=== PATIENT | female | born 1985 | race Caucasian/White ===

== ENCOUNTER 2017-01-28 12:44 | Outpatient (CLI) | payer MEDICAID ==
--- NOTE | 2017-01-28 17:34 | Ultrasound Report ---
OB ULTRASOUND: 01/28/2017 CLINICAL INDICATION: anatomy. TECHNIQUE: Real-time scanning was performed with food service sales representatives static images obtained. LAST MENSTRUAL PERIOD unsure Clinical Age -- US Age 20 weeks 5 days EFW Hadlock 379 EFW% Hadlock -- Heart Rate 152 bpm EDC -- US EDC 06/12/2017 BPD Hadlock 20 weeks 4 days; Mean mm 48 HC Hadlock 20 weeks 1 day; Mean mm 176 AC Hadlock 20 weeks 6 days; Mean mm 157 FL Hadlock 21 weeks 0 days; Mean mm 35 Presentation moving Placental Location posterior Cervical Length 5.3 cm Amniotic Fluid 19.6 cm FINDINGS: There is a single viable intrauterine gestation, in variable position. heart rate is 152 BPM. The placenta is posterior, without evidence of previa. Amniotic fluid volume is subjectively normal. By size, the fetus measures 20 weeks 5 days. The following anatomic structures were visualized and appear normal: The intracranial contents, including the ventricles and posterior fossa; the lips and orbits; the spine; the heart, including 4-chamber view and outflow tracts, and diaphragm; the abdominal contents, including the stomach, the bilateral kidneys, and urinary bladder, as well as a normal 3- vessel cord insertion; 4 limbs. No free fluid or adnexal lesion is appreciated. IMPRESSION: SINGLE VIABLE INTRAUTERINE GESTATION, MEASURING 20 WEEKS 5 DAYS BY SIZE. NORMAL ANATOMIC SURVEY. [facility]
== END 2017-01-28 12:45 | disposition home or self-care (01) ==
LOC: DI 12:44
PROVIDERS: ATTEND Obstetrics & Gynecology
DX: Z36.3 Encounter for antenatal screening for malformations (principal)
CPT/HCPCS: 76811

== ENCOUNTER 2017-02-13 19:01 | Outpatient (CLI) | payer MEDICAID ==
[2017-02-13 20:29] LABS: BILIRUBIN,URINE NEGATIVE (NEGATIVE); PH,URINE 6.5 PH (5.0-7.5)
[2017-02-13 20:43] LABS: TRICHOMONAS,URINE PRESENT (None Seen); UR CULTURE IF IND INDICATED
[2017-02-13 20:45] VITALS: BP 101/57
== END 2017-02-13 21:12 | disposition home or self-care (01) ==
LOC: WFO 19:01 → FBP 19:07 → WFO 21:12
PROVIDERS: ATTEND Obstetrics & Gynecology
DX: O99.89 Other specified diseases and conditions complicating pregnancy, childbirth and the puerperium (principal); R10.11 Right upper quadrant pain; Z3A.23 23 weeks gestation of pregnancy
CPT/HCPCS: 80306; 81001; 87086; 99212

== ENCOUNTER 2017-02-24 08:35 | Emergency (ER) | payer MEDICAID ==
--- NOTE | 2017-02-24 09:05 | ED Physician Documentation ---
PD HPI URI - Stated complaint Stated Complaint: BODY ACHES/FEVER 22WKS PREG - Chief complaint Chief Complaint: General - History obtained from History obtained from: Patient, EMS - History of Present Illness Timing - onset: How many days ago (1-2) Timing duration: Days Timing details: Abrupt onset, Still present Associated symptoms: Fever, Chills, Nasal congestion, Sore throat, Dry cough Contributing factors: No: Sick contact, Travel, Immunocompromised Similar symptoms before: Has not had sx before Recently seen: Not recently seen Review of Systems Constitutional: denies: Fever, Chills Ears: reports: Ear pain Nose: reports: Rhinorrhea / runny nose, Congestion Throat: reports: Sore throat Respiratory: reports: Cough PD PAST MEDICAL HISTORY - Past Medical History Cardiovascular: None Respiratory: None Endocrine/Autoimmune: None GI: None FIELD MACHINIST: None : None Psych: Depression Musculoskeletal: None Derm: None - Past Surgical History Past Surgical History: No - Present Medications Home Medications: Ambulatory Orders Medication Instructions Recorded Confirmed Vit37/Iron/Folic Acid 1 tab PO DAILY 05/07/14 02/24/17 [Prenata Chewable Tablet] Benzonatate [Tessalon] 100 mg PO TID PRN #20 capsule 02/24/17 Bupropion HCl [Wellbutrin Sr] 350 mg PO DAILY 02/24/17 02/24/17 Dexamethasone [Decadron] 4 mg PO DAILY #5 tablet 02/24/17 guaiFENesin/CODEINE [Robitussin AC] 10 ml PO Q6H PRN #240 ml 02/24/17 - Allergies Allergies/Adverse Reactions: Allergies Allergy/AdvReac Type Severity Reaction Status Date / Time No Known Drug Allergies Allergy Verified 08/15/13 19:39 - Social History Does the pt smoke?: Yes Smoking Status: Current every day smoker Does the pt drink ETOH?: No Does the pt have substance abuse?: No - Immunizations Immunizations are current?: Yes - POLST Patient has POLST: No PD ED PE NORMAL - Vitals Vital signs reviewed: Yes - General General: Alert and oriented X 3, Well developed/nourished - HEENT HEENT: Ears normal, Pharynx benign - Neck Neck: Supple, no meningeal sign, No adenopathy - Cardiac Cardiac: RRR, No murmur - Respiratory Respiratory: Clear bilaterally - Abdomen Abdomen: Normal bowel sounds, Soft, Non tender, Other (gravid with fundus at umbilicus. Bedside U/S shows good movement and hear beat. ) - Back Back: No CVA TTP - Derm Derm: Normal color, Warm and dry - Extremities Extremities: No deformity, No tenderness to palpate, No edema, No calf tenderness / cord - Neuro Neuro: Alert and oriented X 3, No motor deficit, Normal speech Results - Vitals Vitals: Oxygen O2 Source Room air - Labs Labs: Microbiology 02/24/17 09:25 Group A Strep Throat Culture - Final Throat MIXED OROPHARYNGEAL TOMY PRESENT. NO BETA STREP PRESENT IN CULTURE. Laboratory Tests 02/24/17 02/24/17 09:25 09:25 Influenza A (Rapid) Negative Influenza B (Rapid) Negative Influenza Types A,B Ag - Group A Strep Rapid Negative PD MEDICAL DECISION MAKING - ED course Complexity details: reviewed results (flu and strep tests are negative and it sounds like URI. can treat with cold meds. ), considered differential, d/w patient Departure - Departure Disposition: 01 Home, Self Care Clinical Impression: Upper respiratory infection Qualifiers: URI type: unspecified URI Qualified Code(s): J06.9 - Acute upper respiratory infection, unspecified Condition: Stable Record reviewed to determine appropriate education?: Yes Instructions: ED RSV Bronchiolitis Prescriptions: Benzonatate [Tessalon] 100 mg PO TID PRN #20 capsule PRN Reason: Cough Dexamethasone [Decadron] 4 mg PO DAILY #5 tablet guaiFENesin/CODEINE [Robitussin AC] 10 ml PO Q6H PRN #240 ml PRN Reason: Cough Comments: Your flu and strep tests are negative. There will be throat culture which will result in about 3 days. For now we will presume some other viral cause. Drink lots of fluids. Tylenol or ibuprofen if needed for fevers and aches at this point. Tylenol is good throughout . No ibuprofen past 28-30 weeks ( what ever your LOCATE TECHNICIAN says). For now would use the Decadron for inflammation of the throat and airways to decrease symptoms. Use cough medicine and Tessalon as needed for cough. Recheck if not improving over the next several days. Follow-up with your OB. Discharge Date/Time: 02/24/17 10:39
[2017-02-24] MEDS ORDERED: DEXAMETHASONE 10 MG/ML VIAL PO STA (09:33)
[2017-02-24] MEDS ORDERED: guaiFENesin/CODEINE 5 ML UDC PO STA (09:33)
[2017-02-24] MEDS ORDERED: BENZONATATE 100 MG CAPSULE PO STA (09:34)
[2017-02-24 10:38] VITALS: BP 111/66
== END 2017-02-24 10:39 | disposition home or self-care (01) ==
LOC: ED 08:35
DX: O26.892 Other specified pregnancy related conditions, second trimester (principal); J06.9 Acute upper respiratory infection, unspecified; O99.332 Smoking (tobacco) complicating pregnancy, second trimester; Z3A.22 22 weeks gestation of pregnancy
CPT/HCPCS: 87070; 87275; 87276; 87430; 99283; A9270

== ENCOUNTER 2017-03-02 09:59 | Outpatient (CLI) | payer MEDICAID ==
[2017-03-02 13:27] LABS: HGB - HEMOGLOBIN 11.5 g/dL (12.0-16.0); MEAN CORPUSCULAR HEMOGLOBIN 32.2 pg (27.0-31.0); MEAN CORPUSCULAR HGB CONC 34.7 g/dL (32.0-36.0); MEAN CORPUSCULAR VOLUME 92.9 fL (81.0-99.0); RED BLOOD COUNT 3.58 10^6/uL (4.20-5.40); RED CELL DISTRIBUTION WIDTH 13.1 % (12.0-15.0); WHITE BLOOD COUNT 10.6 x10^3/uL (4.8-10.8)
== END 2017-03-02 10:00 | disposition home or self-care (01) ==
LOC: LAB.N 09:59
PROVIDERS: ATTEND Obstetrics & Gynecology
DX: Z36.9 Encounter for antenatal screening, unspecified (principal)
CPT/HCPCS: 36415; 82950; 86850

== ENCOUNTER 2017-03-29 10:54 | Outpatient (CLI) | payer MEDICAID ==
[2017-03-29 16:55] LABS: MUDS CUTOFF CONCENTRATIONS CUTOFF CONC BELOW:
[2017-03-29 17:22] LABS: AMPHETAMINE SCREEN,URINE NEGATIVE (NEGATIVE); BENZODIAZEPINES SCREEN, URINE NEGATIVE (NEGATIVE); COCAINE SCREEN URINE NEGATIVE (NEGATIVE); METHADONE SCREEN, URINE NEGATIVE (NEGATIVE); METHAMPHETAMINES SCREEN, URINE NEGATIVE (NEGATIVE); OPIATE SCREEN, URINE NEGATIVE (NEGATIVE); OXYCODONE SCREEN, URINE NEGATIVE (NEGATIVE); PROPOXYPHENE SCREEN, URINE NEGATIVE (NEGATIVE); TRICYCLIC ANTIDEPRESSANT,URINE NEGATIVE (NEGATIVE)
== END 2017-03-29 10:55 ==
LOC: LAB.R 10:54
PROVIDERS: ATTEND Obstetrics & Gynecology
DX: Z36.9 Encounter for antenatal screening, unspecified (principal); A56.00 Chlamydial infection of lower genitourinary tract, unspecified
CPT/HCPCS: 80306; 87491; 87591

== ENCOUNTER 2017-04-05 09:03 | Outpatient (CLI) | payer MEDICAID ==
--- NOTE | 2017-04-05 13:24 | Ultrasound Report ---
OB FOLLOWUP: 04/05/2017 CLINICAL INDICATION: Size/date discrepancy. TECHNIQUE: Real-time scanning was performed with pharmacy sales representative static images obtained. LAST MENSTRUAL PERIOD 09/05/2016 Clinical Age 30 weeks 2 days US Age 31 weeks 5 days EFW Hadlock 1773 g EFW% Hadlock 66% Heart Rate 139 bpm EDC 06/12/2017 US EDC 06/02/2017 BPD Hadlock 32 weeks 0 days; Mean mm 79.7 HC Hadlock 32 weeks 0 days; mean mm 290.7 AC Hadlock 30 weeks 5 days; Mean mm 266.1 FL Hadlock 32 weeks 3 days; Mean mm 62.5 Presentation transverse Placental Location posterior Cervical Length --- Amniotic Fluid 8.0 cm FINDINGS: There is a single viable intrauterine gestation, in transverse lie. heart rate is 139 BPM. The placenta is posterior without evidence of previa. Amniotic fluid volume is normal, with an BRET of 20.9. By size, the fetus measures 31 weeks 5 days (30 weeks 2 days by previous sonogram 01/28/2017) . No free fluid or adnexal lesion is appreciated. IMPRESSION: SINGLE VIABLE INTRAUTERINE GESTATION, WITH SIZE IN KEEPING WITH DATING FROM PREVIOUS SONOGRAM. TD: 04/05/2017 13:03 ZANDRA
== END 2017-04-05 09:04 | disposition home or self-care (01) ==
LOC: DI 09:03
PROVIDERS: ATTEND Obstetrics & Gynecology
DX: O26.843 Uterine size-date discrepancy, third trimester (principal)
CPT/HCPCS: 76816

== ENCOUNTER 2017-04-07 10:57 | Outpatient (CLI) | payer MEDICAID ==
[2017-04-07 11:32] VITALS: BP 95/53
--- NOTE | 2017-04-08 08:58 | Ultrasound Report ---
OB FOLLOWUP: 04/07/2017 CLINICAL INDICATION: Abdominal pain. TECHNIQUE: Real-time scanning was performed with insurance verification representative static images obtained. LAST MENSTRUAL PERIOD 09/05/2016 CLINICAL AGE 30 weeks 4 days US AGE 30 weeks 6 days EFW HADLOCK 1673 grams EFW% HADLOCK --% HEART RATE 135 bpm EDC 06/12/2017 US EDC 06/10/2017 BPD HADLOCK 31 weeks 4 days; Mean mm 78 HC HADLOCK 31 weeks 3 days; Mean mm 285 AC HADLOCK 30 weeks 2 days; Mean mm 262 FL HADLOCK 31 weeks 4 days; Mean mm 60 PRESENTATION variable PLACENTAL LOCATION posterior CERVICAL LENGTH -- AMNIOTIC FLUID 25.3 cm MVP 7.8 cm FINDINGS: There is a single viable intrauterine gestation, in variable position. heart rate is 135 BPM. The placenta is posterior, without evidence of previa or abruption. Amniotic fluid volume is at the upper limits of normal, with an BRET of 25.3 (25.8 cm is the 97.5th percentile for this gestational age). By size, the fetus measures 30 weeks 6 days (30 weeks 4 days by initial sonogram). Estimated weight by Hadlock method is 1673 grams. No free fluid or adnexal lesion is appreciated. IMPRESSION: SINGLE VIABLE INTRAUTERINE GESTATION, WITH EXPECTED GROWTH FROM INITIAL SONOGRAM. POSTERIOR PLACENTA, WITHOUT EVIDENCE OF PREVIA OR ABRUPTION. ESTIMATED WEIGHT OF 1673 GRAMS. BORDERLINE POLYHYDRAMNIOS. TD: 04/07/2017 17:13 MTDD
== END 2017-04-07 12:45 | disposition home or self-care (01) ==
LOC: WFO 10:57 → FBP 10:59 → WFO 12:45
PROVIDERS: ATTEND Obstetrics & Gynecology
DX: O99.89 Other specified diseases and conditions complicating pregnancy, childbirth and the puerperium (principal); R10.9 Unspecified abdominal pain; Z3A.30 30 weeks gestation of pregnancy
CPT/HCPCS: 59025; 76816; 83735

== ENCOUNTER 2017-04-19 07:58 | Outpatient (CLI) | payer MEDICAID ==
[2017-04-19 08:16] VITALS: BP 108/75
[2017-04-19 08:37] LABS: BILIRUBIN,URINE NEGATIVE (NEGATIVE); GLUCOSE, URINE (UA) NEGATIVE (NEGATIVE); KETONES,URINE (UA) NEGATIVE (NEGATIVE); LEUKOCYTE ESTERASE, URINE MODERATE (NEGATIVE); NITRITE,URINE NEGATIVE (NEGATIVE); OCCULT BLOOD,URINE NEGATIVE (NEGATIVE); PH,URINE 6.5 PH (5.0-7.5); PROTEIN,URINE NEGATIVE (NEGATIVE); UROBILINOGEN,URINE 0.2 (NORMAL) E.U./dL (NORMAL)
[2017-04-19 08:42] LABS: CLARITY,URINE SL. CLOUDY (CLEAR)
[2017-04-19 08:50] LABS: BACTERIA,URINE Many /HPF (None Seen); RBC,URINE 0-5 /HPF (0-5); SQUAMOUS EPITHELIAL CELL,UR MANY Squamous (<= Few)
[2017-04-19 09:19] LABS: BILIRUBIN,URINE NEGATIVE (NEGATIVE); GLUCOSE, URINE (UA) NEGATIVE (NEGATIVE); KETONES,URINE (UA) NEGATIVE (NEGATIVE); LEUKOCYTE ESTERASE, URINE NEGATIVE (NEGATIVE); NITRITE,URINE NEGATIVE (NEGATIVE); OCCULT BLOOD,URINE NEGATIVE (NEGATIVE); PROTEIN,URINE NEGATIVE (NEGATIVE); UROBILINOGEN,URINE 0.2 (NORMAL) E.U./dL (NORMAL)
[2017-04-19 09:20] LABS: CLARITY,URINE CLEAR (CLEAR)
== END 2017-04-19 09:13 | disposition home or self-care (01) ==
LOC: WFO 07:58 → FBP 08:00 → WFO 09:13
PROVIDERS: ATTEND Obstetrics & Gynecology
DX: O99.89 Other specified diseases and conditions complicating pregnancy, childbirth and the puerperium (principal); S39.011A Strain of muscle, fascia and tendon of abdomen, initial encounter; X50.0XXA Overexertion from strenuous movement or load, initial encounter; Z3A.32 32 weeks gestation of pregnancy
CPT/HCPCS: 81001; 81003; 87086; 99213

== ENCOUNTER 2017-05-12 13:37 | Outpatient (CLI) | payer MEDICAID | END 2017-05-12 13:38 | LOC: LAB.R 13:37 | PROVIDERS: ATTEND Obstetrics & Gynecology | DX: Z36.85 Encounter for antenatal screening for Streptococcus B (principal) | CPT/HCPCS: 87081 ==

== ENCOUNTER 2017-05-17 09:01 | Outpatient (CLI) | payer MEDICAID ==
--- NOTE | 2017-05-17 14:55 | Ultrasound Report ---
OB ULTRASOUND: 05/17/2017 CLINICAL INDICATION: Size greater than dates. TECHNIQUE: Real-time scanning was performed with software sales representative static images obtained. LAST MENSTRUAL PERIOD 09/06/2016 Clinical Age 36 weeks 1 day US Age 37 weeks 3 days EFW Hadlock 3122 grams EFW% Hadlock 68% Heart Rate 129 bpm EDC 06/13/2017 US EDC 06/04/2017 BPD Hadlock 37 weeks 5 days; Mean mm 92 HC Hadlock 37 weeks 6 days; Mean mm 332 AC Hadlock 36 weeks 6 days; Mean mm 329 FL Hadlock 37 weeks 0 days; Mean mm 72 Presentation cephalic Placental Location posterior Cervical Length -- Amniotic Fluid 22.0 cm; MVP 8 cm FINDINGS: There is a single viable intrauterine gestation, in cephalic presentation. heart rate is 129 BPM. The placenta is posterior, without evidence of previa. Amniotic fluid volume is normal, with an BRET of 22.0. By size, the fetus measures 37 weeks 3 days (36 weeks 1 day per patient). Estimated weight by Hadlock method is 3122 grams. No free fluid or adnexal lesion is appreciated. IMPRESSION: SINGLE VIABLE INTRAUTERINE GESTATION, WITH SIZE IN KEEPING WITH GIVEN DATING. ESTIMATED WEIGHT OF 3122 GRAMS BY HADLOCK METHOD. TD: 05/17/2017 13:01 ZANDRA
== END 2017-05-17 09:02 | disposition home or self-care (01) ==
LOC: DI 09:01
PROVIDERS: ATTEND Obstetrics & Gynecology
DX: Z36.9 Encounter for antenatal screening, unspecified (principal)
CPT/HCPCS: 76816

== ENCOUNTER 2017-06-02 08:00 | Outpatient (CLI) | payer MEDICAID | END 2017-06-02 08:01 | disposition home or self-care (01) | LOC: LAB.R 08:00 | PROVIDERS: ATTEND Obstetrics & Gynecology | DX: R35.0 Frequency of micturition (principal) | CPT/HCPCS: 87086 ==

== ENCOUNTER 2017-06-10 07:32 | Inpatient (IN) | payer MEDICAID ==
--- NOTE | 2017-06-09 16:05 | PREOP HISTORY & PHYSICAL ---
ANTICIPATED DATE OF ADMISSION: 06/10/2017. IDENTIFICATION: Patient is a 32-year-old G4, P3-0-0-3 with a 39 and 4/7-week intrauterine . EDC is 06/13/2017, consistent with 8-week ultrasound. HISTORY OF PRESENT ILLNESS: Patient presents today for routine visit. Patient at this point in time is having a difficult time with the . She is having significant back pain secondary to the baby. Baby is moving well. She denies any vaginal bleeding or loss of fluid. Patient at this point in time states that she desires induction of labor. In general, she cannot do anything else and just is trying to deal with her back pain. This has essentially been remarkable for patient's xxwy-twac-d-day smoking habit. She has also been on Wellbutrin for smoking cessation. She also was treated for trichomonas during this in January. PAST MEDICAL HISTORY 1. depression. 2. History of drug abuse. PAST SURGICAL HISTORY: None. ALLERGIES: NO KNOWN DRUG ALLERGIES. MEDICATIONS 1. vitamins. 2. Status post Flagyl for trichomonas. SOCIAL HISTORY: She, again, smokes half a pack of tobacco a day. She denies any alcohol or illicit drug use, multiple MUDS screens during this have been unremarkable. She is not with the father of the baby. She has children Paresh, Beatriz, and Essence. This is a male fetus with anticipated name of Reji. Her kids see [facility] for pediatrics. She anticipates to bottle feed and desires cabergoline after delivery of baby Reji. Patient would like an epidural for pain control if possible. PAST OBSTETRICAL HISTORY: Three prior vaginal deliveries at 40 and 41 weeks, largest baby weighing 8 pounds 6 ounces. She has stated that should she require a delivery, she would like to have a sterilization. This consent has been signed on 03/01/2017. She has received her flu vaccine on 01/08/2017 and her Tdap on 03/29/2017. Her pharmacy of choice is [facility]. Her mother is Nadine. PAST GYNECOLOGIC HISTORY: Patient did had have an ASCUS Pap smear during this . FAMILY HISTORY: No female carcinoma. REVIEW OF SYSTEMS: Negative unless otherwise stated. PHYSICAL EXAMINATION VITAL SIGNS: Height is 62 inches, weight is 207 pounds, blood pressure 102/60. GENERAL: Patient is a well-developed, well-nourished, female who appears to be older than her stated age. HEENT: Within normal limits, but she does have poor dentition. CARDIOVASCULAR: Rate is regular. No murmurs or rubs. LUNGS: Lungs are clear to auscultation bilaterally. ABDOMEN: Gravid, nontender. Fundal height is 36 cm. CERVICAL: Most recent cervical examination today is 2, 50, and -2. Head is applied to the cervix. STUDIES: laboratories reveal an ASCUS Pap smear with negative high- risk human papillomavirus. GC was positive on 11/08/2016, and a 03/29/2017 test of cure was negative. Gonorrhea was negative. HIV nonreactive. Blood type is AB positive. Antibody screen is negative, RPR nonreactive, rubella immune, hepatitis B surface antigen is nonreactive. One-hour GTT is 121. White count 10.6, H and H is 11.5 and 33.2, platelets within normal limits. GBS negative. anatomical survey shows that is consistent with dates and within normal limits. Placenta is posterior. ASSESSMENT 1. A 32-year-old G4, P3-0-0-3, with a 39 and 4/7-week intrauterine . 2. Cervix remote from delivery. 3. Desires elective induction of labor. 4. Treated for chlamydia with test of cure being negative. PLAN 1. We will proceed to a scheduled cervical ripening on 06/10/2017 via Cytotec 50 mcg buccally. 2. Epidural for pain control. 3. Anticipate spontaneous vaginal delivery. 4. We will do post- tubal ligation should patient require delivery, which would be very unlikely during this delivery. TD: 06/09/2017 15:32 ZANDRA
[~2017-06-10 07:32] MED LIST: SODIUM CHLORIDE FLUSH 0.9% 10 ML SYRINGE IVP PRN; fentaNYL 100 MCG/2 ML VIAL IVP PRN
[2017-06-10] MEDS: SODIUM CHLORIDE FLUSH 0.9% 10 ML SYRINGE IVP SCH ×2 (08:32→11:28)
[2017-06-10] MEDS: LACTATED RINGERS 1,000 ML IV SCH ×3 (08:32→20:39)
[2017-06-10] MEDS: miSOPROStol 100 MCG TABLET SL SCH ×3 (08:32→13:03)
[2017-06-10 08:54] LABS: BASOPHILS % (AUTO) 0.2 %; EOSINOPHILS # (AUTO) 0.1 10^3/uL (0.0-0.7); EOSINOPHILS % (AUTO) 0.5 %; HGB - HEMOGLOBIN 11.9 g/dL (12.0-16.0); LYMPHOCYTES # (AUTO) 2.4 10^3/uL (1.5-3.5); MEAN CORPUSCULAR HGB CONC 33.9 g/dL (32.0-36.0); MEAN CORPUSCULAR VOLUME 91.4 fL (81.0-99.0); MEAN PLATELET VOLUME 9.1 fL (7.9-10.8); MONOCYTES # (AUTO) 0.5 10^3/uL (0.0-1.0); MONOCYTES % (AUTO) 3.8 %; NEUTROPHILS # (AUTO) 9.7 10^3/uL (1.5-6.6); NEUTROPHILS % (AUTO) 76.5 %; PLT - PLATELET COUNT 248 10^3/uL (130-450); RED BLOOD COUNT 3.84 10^6/uL (4.20-5.40); RED CELL DISTRIBUTION WIDTH 13.4 % (12.0-15.0); WHITE BLOOD COUNT 12.7 x10^3/uL (4.8-10.8)
--- NOTE | 2017-06-10 13:45 | PROVIDER PROGRESS NOTE ---
Labor Progress Note - Uterine Monitoring Uterine Monitoring Mode: positive: External toco Contraction Frequency (min/apart): Uterine irritability on toco Contraction Intensity: positive: Moderate to strong Uterine Resting Tone: positive: Soft - Monitoring Monitor Mode: positive: External ultrasound Heart Rate Baseline: 120's Heart Rate Variability: positive: Moderate (6-25 bmp) Accelerations: positive: Present, 15x15 Decelerations: positive: None Strip Review: positive: Category I - Vaginal Exam Dilation (in cm): (Deferred) - Labor Progress Note Labor Progress Note/Additional Text: 32 yo with a 39w4d IUP Elective induction of labor Cervix remote from delivery Reassuring maternal and status S/p 2nd dose of cytotec 50 mcg SL. Given 12:45 (first at 08:30). Plan to recheck cervix at about 17:00. Likely to give the patient an epidural and then AROM Expect Patient OK with plan Labs, EKG, Meds, Allergy - Lab Results Fish Bones: 06/10/17 08:00 Other Lab Results: Lab Results x24hrs 06/10/17 Range/Units 08:00 WBC 12.7 H (4.8-10.8) x10^3/uL RBC 3.84 L (4.20-5.40) 10^6/uL Hgb 11.9 L (12.0-16.0) g/dL Hct 35.1 L (37.0-47.0) % MCV 91.4 (81.0-99.0) fL MCH 31.0 (27.0-31.0) pg MCHC 33.9 (32.0-36.0) g/dL RDW 13.4 (12.0-15.0) % Plt Count 248 (130-450) 10^3/uL MPV 9.1 (7.9-10.8) fL Neut # 9.7 H (1.5-6.6) 10^3/uL Lymph # 2.4 (1.5-3.5) 10^3/uL Lamar # 0.5 (0.0-1.0) 10^3/uL Eos # 0.1 (0.0-0.7) 10^3/uL Baso # 0.0 (0.0-0.1) 10^3/uL Absolute Nucleated RBC 0.00 x10^3/uL Nucleated RBC % 0.0 /100WBC - Medications Medications: Ambulatory Orders Medication Instructions Recorded Confirmed Vit37/Iron/Folic Acid 1 tab PO DAILY 05/07/14 02/24/17 [Prenata Chewable Tablet] Benzonatate [Tessalon] 100 mg PO TID PRN #20 capsule 02/24/17 Bupropion HCl [Wellbutrin Sr] 350 mg PO DAILY 02/24/17 02/24/17 Dexamethasone [Decadron] 4 mg PO DAILY #5 tablet 02/24/17 guaiFENesin/CODEINE [Robitussin AC] 10 ml PO Q6H PRN #240 ml 02/24/17 - Allergy Allergy: Allergies Allergy/AdvReac Type Severity Reaction Status Date / Time No Known Drug Allergies Allergy Verified 08/15/13 19:39 Vit37/Iron/Folic Acid [Prenata Chewable Tablet] 1 tab PO DAILY Benzonatate [Tessalon] 100 mg PO TID PRN #20 capsule 02/24/17 Bupropion HCl [Wellbutrin Sr] 350 mg PO DAILY 02/24/17 Dexamethasone [Decadron] 4 mg PO DAILY #5 tablet 02/24/17 guaiFENesin/CODEINE [Robitussin AC] 10 ml PO Q6H PRN #240 ml 02/24/17
--- NOTE | 2017-06-10 17:45 | PROVIDER PROGRESS NOTE ---
Labor Progress Note - Uterine Monitoring Uterine Monitoring Mode: positive: External toco Contraction Frequency (min/apart): Difficult to see Contraction Intensity: positive: Moderate to strong Uterine Resting Tone: positive: Soft - Monitoring Monitor Mode: positive: External ultrasound Heart Rate Variability: positive: Moderate (6-25 bmp) Accelerations: positive: Present, 15x15 Decelerations: positive: None Strip Review: positive: Category I - Vaginal Exam Dilation (in cm): 5 Effacement (%): 60 Station: -2 Cervical Position: Posterior - Labor Progress Note Labor Progress Note/Additional Text: 32 yo with a 39w4d IUP AROM-- scant, clear fluid. Epidural now Expect Reassuring and maternal status
[2017-06-10] MEDS ORDERED: ROPIVACAINE 0.5% PF 20 ML AMPULE ONE (17:58)
[2017-06-10] MEDS ORDERED: fent/BUPIV 2 MCG/0.125% 250 ML EP ONE (18:02)
[2017-06-10] MEDS ORDERED: ePHEDrine 50 MG/ML VIAL IVP PRN (18:36)
[2017-06-10] MEDS ORDERED: METOCLOPRAMIDE 10 MG/2 ML VIAL IVP PRN (18:36)
[2017-06-10] MEDS ORDERED: fent/BUPIV 2 MCG/0.125% 250 ML EP PRN (18:36)
[2017-06-10] MEDS ORDERED: diphenhydrAMINE INJ 50 MG/ML VIAL IVP PRN (18:36)
[2017-06-10] MEDS ORDERED: NALOXONE 0.4 MG/ML VIAL IVP PRN (18:36)
[2017-06-10] MEDS ORDERED: NALBUPHINE 20 MG/ML AMP IVP PRN (18:36)
[2017-06-10] MEDS ORDERED: ONDANSETRON 4 MG/2 ML VIAL IVP PRN (18:36)
[2017-06-10] MEDS ORDERED: LACTATED RINGERS 500 ML IV ONE (18:36)
[2017-06-10] MEDS ORDERED: OXYTOCIN/SODIUM CHLORIDE 500 ML IV SCH (20:00)
[2017-06-11] MEDS: LACTATED RINGERS 1,000 ML IV SCH ×2 (04:17→11:23)
[2017-06-11] MEDS ORDERED: miSOPROStol 200 MCG TABLET ONE (10:17)
--- NOTE | 2017-06-11 10:23 | PROVIDER PROGRESS NOTE ---
Labor Progress Note - Uterine Monitoring Uterine Monitoring Mode: positive: External toco Contraction Frequency (min/apart): Q3-4 (Pitocin 12 mU/min) Contraction Intensity: positive: Moderate to strong Uterine Resting Tone: positive: Soft - Monitoring Monitor Mode: positive: External ultrasound Heart Rate Variability: positive: Moderate (6-25 bmp) Accelerations: positive: Present, 15x15 Decelerations: positive: None Strip Review: positive: Category I - Vaginal Exam Dilation (in cm): 4 (Last RN exam about 08:00) Station: -2 - Labor Progress Note Labor Progress Note/Additional Text: 32 yo with a 39w5d IUP Desired induction of labor Clinically membranes intact Given high station, will continue pitocin until cervix has descended, then will AROM Continue epidural Expect (>5 family members and friends in the room. Some of the visitors smell of cigarettes and cat urine. Will minimize the visitors in the room for delivery.)
[2017-06-11] MEDS ORDERED: ACETAMINOPHEN 325 MG TABLET PO PRN (11:38)
--- NOTE | 2017-06-11 12:34 | PROVIDER PROGRESS NOTE ---
Labor Progress Note - Uterine Monitoring Uterine Monitoring Mode: positive: External toco Contraction Frequency (min/apart): Q3 Contraction Intensity: positive: Moderate to strong - Monitoring Monitor Mode: positive: External ultrasound Heart Rate Variability: positive: Moderate (6-25 bmp) Accelerations: positive: Present, 10x10 (=/32 wks) Decelerations: positive: None Strip Review: positive: Category I - Vaginal Exam Dilation (in cm): 8 Effacement (%): 70 Station: -2 Cervical Position: Posterior - Labor Progress Note Labor Progress Note/Additional Text: 32 yo with a 39w5d IUP AROM with clear fluid and small clots Continue epidural Expect
[2017-06-11] MEDS ORDERED: WITCH HAZEL/GLYCERIN 1 EACH MED..PAD TOP PRN (13:56)
[2017-06-11] MEDS ORDERED: OXYTOCIN/SODIUM CHLORIDE 250 ML IV ONE (13:56)
[2017-06-11] MEDS ORDERED: MAGNESIUM HYDROXIDE 2,400 MG/30 ML UDC PO PRN (13:56)
--- NOTE | 2017-06-11 14:04 | DELIVERY NOTE ---
Delivery Note - Labor Labor: positive: Augmented by ARM, Augmented by oxytocin - Infant Delivery Method Delivery Method: positive: Spontaneous vaginal delivery - Presentation Presentation: positive: Vertex - Nuchal Cord Nuchal Cord: positive: None - Amniotic Fluid Description Amniotic Fluid Description: positive: Clear - Episiotomy Type Episiotomy Type: positive: None - Laceration Laceration: positive: 2nd degree, Labial, Perineal - Suture Suture Type: positive: Vicryl Suture Size: positive: 3-0 - Delivery Outcome Delivery Outcome: positive: Livebirth - : positive: Placed in direct skin contact with mother [place] sex: positive: Male : 9 : 9 - Cord Cord: positive: 3 vessels - Placenta Placenta: positive: Intact, Spontaneous - Estimated Blood Loss Estimated Blood Loss (in cc): 300 - Post Delivery Events Post Delivery Events: positive: No post delivery events - Delivery Comments (Free Text/Narrative) Delivery Comments (Free Text/Narrative): 32 yo with a 39w5d IUP was electively induced. She received 2 doses of cytotec 50 mcg buccally then pitocin. Epidural for pain control. AROM revealed clear fluid. The patient spontaneously delivered a viable male , VTX, OA. No nuchal cord nor shoulder dystocia. Bulb suction after delivery. The placenta delivered spontaneously, intact with a 3VC. 2nd degree midline, left labial and right labial lacerations repaired with 3-0 vicryl. EBL 300 mL. No complications. Will give routine pain meds including round the clock tylenol and Celebrex with PRN vicodin.
[2017-06-11] MEDS ORDERED: SODIUM CHLORIDE FLUSH 0.9% 10 ML SYRINGE ONE (16:14)
[2017-06-11] MEDS: HYDROcod/ACETAM 5/325 MG TABLET PO PRN ×2 (17:56→22:49)
[2017-06-11] MEDS: NICOTINE 21 MG PATCH TOP SCH (18:03)
[2017-06-11] MEDS: DOCUSATE SODIUM 100 MG CAPSULE PO SCH (20:46)
[2017-06-11] MEDS: CELECOXIB 100 MG CAPSULE PO SCH (20:46)
[2017-06-11] MEDS: ACETAMINOPHEN 325 MG TABLET PO SCH (20:46)
[2017-06-12] MEDS: NICOTINE 21 MG PATCH TOP SCH (10:40)
[2017-06-12] MEDS: CELECOXIB 100 MG CAPSULE PO SCH (11:07)
[2017-06-12] MEDS: HYDROcod/ACETAM 5/325 MG TABLET PO PRN (11:07)
[2017-06-12] MEDS: ACETAMINOPHEN 325 MG TABLET PO SCH ×2 (11:07→15:23)
[2017-06-12] MEDS: DOCUSATE SODIUM 100 MG CAPSULE PO SCH (11:08)
--- NOTE | 2017-06-12 11:14 | PROVIDER PROGRESS NOTE ---
Subjective - Prog Note Date Prog Note Date: 06/12/17 Prog Note Time: 11:10 - Subjective Pt reports feeling: Improved Subjective: Patient sitting in bed, 3 older children, foster child, niece and sister in the room visiting. Her pain is almost satisfactorily controlled but she is not taking her medications routinely. Decreasing lochia. No nausea, vomiting, fevers or chills. Urinating and tolerating a regular diet well. Ambulating without difficulty. D/W the patient that overall a laparoscopic bilateral tubal sterilization at 6 - 8 weeks is likely better than an immediate sterilization. Risks of hemorrhage and aspiration is less, not to mention maximal prevention of ovarian cancer with complete removal of both tubes , is better if surgery is deferred. Objective - Vital Signs/Intake & Output Vital Signs: Vital Signs x48h Temp Pulse Resp BP Pulse Ox 06/12/17 07:45 98.4 F 70 16 90/50 L 99 Intake & Output: Intake & Output 06/09/17 06/10/17 06/11/17 06/12/17 23:59 23:59 23:59 23:59 Intake Total 7999.906 0281.167 Output Total 1700 2090 Balance -474.999 680.167 - Objective General Appearance: positive: No acute distress Eyes Bilateral: positive: Normal inspection Abdomen: positive: Non-tender Skin: positive: Color nml Neurologic/Psychiatric: positive: Oriented x3, Sensation nml, Mood/affect nml - Lab Results Fish Bones: 06/10/17 08:00 Assessment/Plan - Problem List (1) Vaginal delivery Impression: 32 yo S/p 06/11/2017 Normal recovery Desires permanent sterilization Suboptimal pain control Will increase frequency of po pain meds Discharge to home, likely after lunch, after pain better controlled Rx tylenol, motrin faxed to her pharmacy. Handwritten Rx for vicodin done Patient to see me at [facility] in 3 and 8 weeks. Anticipate laparoscopic bilateral salpingectomy at about 8 weeks No heavy lifting or driving after taking vicodin Call for worsening fevers, chills, abdominal pain Do not breast feed and wear a tight bandage around her chest to suppress Discharge summary dictated: [id number] Discharge Plan Disposition: 01 Home, Self Care Condition: Good Diet: Regular Activity Restrictions: Additional Comments (No lifting > 10 lbs) Shower Restrictions: No (No baths) Driving Restrictions: Yes (Do not drive after taking vicodin) Weight Bearing: Full Weight No Smoking: If you smoke, Please STOP! Call for help.
--- NOTE | 2017-06-12 11:42 | DISCHARGE SUMMARY ---
Physician: Judy Bryant DO DATE OF ADMISSION: 06/10/2017 DATE OF DISCHARGE: 06/12/2017 DIAGNOSES ON ADMISSION 1. 32-year-old G4, P3-0-0-3 with a 39 and 3/7-week intrauterine . 2. Desired elective induction of labor. 3. Cervix remote from delivery. 4. Desires permanent sterilization. DIAGNOSES ON DISCHARGE 1. 32-year-old G4, P4-0-0-4, status post spontaneous vaginal delivery on 2017. 2. Normal recovery. 3. Desires permanent sterilization. BRIEF HISTORY: The patient is a patient of [facility] who presented to Labor and Delivery on 06/10/2017 for scheduled elective induction of labor. She received 2 doses of Cytotec 50 mcg buccally x2 as well as IV Pitocin. She did have an epidural for pain control. After artificial rupture of membranes revealed clear fluid, she spontaneously delivered a viable male named Reji. Apgars were 9 and 9 at 1 and 5 minutes respectively. Weight is approximately 8 pounds. She sustained a second-degree midline as well as second-degree bilateral labial lacerations. All lacerations were repaired with 3-0 Vicryl. EBL was 300 mL, and there were no complications. Her course has been unremarkable. Although her pain is controlled with oral medications, it can be improved with routine scheduling of her medications. Otherwise, she is ambulating and tolerating a regular diet. She is ambulating and urinating without difficulty. Her lochia is decreasing. I discussed with the patient though she does desire permanent sterilization that it is in her best interest to proceed with a laparoscopic bilateral salpingectomy at least 8 weeks after delivery. This is because there will be decreased risks of aspiration, hemorrhage, and inadvertent lacerations or cauterizations as compared to an immediate sterilization. In addition, because of the enlarged uterus, it would be very difficult for me to perform a bilateral salpingectomy in order to maximize ovarian cancer prevention. With a laparoscopic surgery, I can assuredly remove the fallopian tube in its entirety. After I explained this to her, she understood the conversation and would like to proceed. She will be discharged to home today after we optimize her pain control. Again , we will increase the frequency of her pain medications. She has had 2 prescriptions for Vicodin as well as Motrin sent to her pharmacy. Handwritten prescription for Vicodin is available to her should she desire it. No heavy lifting more than 10 pounds is recommended for her. I also cautioned her not to drive after taking Vicodin as she can get a DUI. She is to call me for routine visits at 3 and 8 weeks after delivery. I have taken the liberty of initiating surgical scheduling for a laparoscopic bilateral salpingectomy for desired sterilization. She is to call should she have worsening fevers, chills , abdominal pain or vaginal bleeding. TD: 06/12/2017 11:42 MTDD
[2017-06-12 15:19] VITALS: BP 108/59
--- NOTE | 2017-06-12 15:30 | Labor Flowsheet ---
Labor Flowsheet Datetime Report Generated by CPN: 06/12/2017 15:30 Datetime: 06/12/2017 14:09 VITAL SIGNS NBP Sys/Marleen/Mean (mmHg): 108 : 59 : 71 Pulse: 80 Datetime: 06/11/2017 16:44 SpO2 (%): 100 Datetime: 06/11/2017 14:00 PAIN Pain Presence: None/Denies Datetime: 06/11/2017 13:24 Stage of : Membranes Ruptured Date/Time: 06/11/2017 12:15 Datetime: 06/11/2017 13:15 LaborFlag: Labor Datetime: 06/11/2017 13:11 STAGE 2 Pushing: Urge to Push Pushing Progress: Descent with Pushing Preparation for Delivery: Setup for Delivery Datetime: 06/11/2017 13:04 Communication Comments: Dr. Annette @ bedside Datetime: 06/11/2017 13:00 UTERINE ACTIVITY Monitor Mode: External Monitor Interventions for UA: [place] Adjusted Frequency (min): 3 Quality: Strong Duration (sec): 80 Pattern: Normal: <= 5 Contractions in 10 Minutes Resting Tone (Palpate): Relaxed ASSESSMENT A Monitor Mode: External US Monitor Interventions for FHR: Ultrasound Adjusted FHR Baseline Rate : 115 Variability: Moderate 6-25 bpm Accelerations: None Decelerations: Early Actions for Decelerations: Side to Side; Provider Notified Category: Category II PATIENT CARE Oxygen Method: Room Air Pushing Position: Pushing with Contractions Datetime: 06/11/2017 12:30 Pain Type: Contraction Pain Location: Abdomen Pain Relief Measures: Comfort Measures Pain Coping: Breathing Through Contractions Amniotic Fluid Color: Clear MATERNAL ASSESSMENT Level of Consciousness: Lethargy Headache: Denies Comfort Measures: Breathing/Relaxation Datetime: 06/11/2017 12:16 Membrane Status: Ruptured Membranes Rupture Method: Artificial Amniotic Fluid Amount: Small Amniotic Fluid Odor: Normal Datetime: 06/11/2017 11:30 Strip Reviewed by: Dr. Bryant Provider Notified (Name): Dr. Bryant Notification Reason: Status Update; Status; Labor Status; Pain Datetime: 06/11/2017 11:29 COMMUNICATION Communication: RN at Bedside Datetime: 06/11/2017 11:12 Patient Position/Activity: Left Tilt; High Fowlers Datetime: 06/11/2017 11:07 VAGINAL EXAM Dilatation (cm): 6.0 Effacement (%): 90 Station: -3 Exam by: ALDAIR Villatoro Vaginal Bleeding: Small Cervix, Consistency: Soft Lie 'A': Longitudinal Vaginal Exam Comments: BBOW Datetime: 06/11/2017 11:00 MEDICATIONS Pitocin (milliunits): Increased to @ 14 Patient Care Comments: Pt sitting in bed with R tilt Datetime: 06/11/2017 10:00 Nausea/Vomiting: Denies ANESTHESIA Anesthesia Level Check: T7 Datetime: 06/11/2017 09:45 Temperature (C): 37.0 Temperature Route: Oral Datetime: 06/11/2017 09:00 TEACHING Plan of Care: Plan of Care Discussed Datetime: 06/11/2017 08:30 Pitocin Checklist: At Least 1 Acceleration of 15 bpm x 15 Seconds in 30 Minutes or Adequate Variabi lity; Uterus Palpates Soft between Contractions FHR Baseline Changes: Bradycardia Datetime: 06/11/2017 08:00 MONTEVIDEO UNITS (Computed) Contractions in Ten Minutes: 4 Cervix, Position: Posterior Presentation 'A': Cephalic Position 'A': Left Occipital Transverse Breath Sounds, Left: Clear and Equal Breath Sounds, Right: Clear and Equal RUQ Epigastric Pain: Denies Procedures: Sterile Vag Exam Hygiene: Gita Care; Underpad Changed; Peripad Changed Datetime: 06/11/2017 06:30 Contraction Comments: pt sleeping Datetime: 06/11/2017 06:00 Respirations: 18
== END 2017-06-12 14:20 | disposition home or self-care (01) | DRG 774 ==
LOC: WFO 07:32 → FBP 07:33 → WFO 17:59 → FBP 18:00
PROVIDERS: ADMIT Obstetrics & Gynecology; ATTEND Obstetrics & Gynecology
PROC: 10907ZC Drainage of Amniotic Fluid, Therapeutic from Products of Conception, Via Natural or Artificial Opening (ICD-10-PCS; 2017-06-10)
PROC: 10E0XZZ Delivery of Products of Conception, External Approach (ICD-10-PCS; principal; 2017-06-11)
PROC: 0KQM0ZZ Repair Perineum Muscle, Open Approach (ICD-10-PCS; 2017-06-11)
DX: O75.89 Other specified complications of labor and delivery (principal); O98.319 Other infections with a predominantly sexual mode of transmission complicating pregnancy, unspecified trimester; A56.11 Chlamydial female pelvic inflammatory disease; A59.00 Urogenital trichomoniasis, unspecified; M54.9 Dorsalgia, unspecified; O70.1 Second degree perineal laceration during delivery; O99.334 Smoking (tobacco) complicating childbirth; F17.210 Nicotine dependence, cigarettes, uncomplicated; F19.11 Other psychoactive substance abuse, in remission; Z3A.39 39 weeks gestation of pregnancy; Z37.0 Single live birth; Z86.59 Personal history of other mental and behavioral disorders
CPT/HCPCS: 59200; 85025

== ENCOUNTER 2017-07-26 10:11 | Outpatient (CLI) | payer MEDICAID ==
[2017-07-26 10:35] LABS: HCG UR QUAL NEGATIVE
== END 2017-07-26 10:12 | disposition home or self-care (01) ==
LOC: LAB 10:11
PROVIDERS: ATTEND Obstetrics & Gynecology
DX: Z01.812 Encounter for preprocedural laboratory examination (principal); Z30.2 Encounter for sterilization
CPT/HCPCS: 81025

== ENCOUNTER 2017-07-27 05:55 | Day surgery (SDC) | payer MEDICAID ==
--- NOTE | 2017-07-26 12:23 | PREOP HISTORY & PHYSICAL ---
DATE OF ADMISSION: 07/27/2017 Physician: Judy Bryant DO IDENTIFICATION: A 32-year-old G4, P4-0-0-4. HISTORY OF PRESENT ILLNESS: Patient presents today to [facility] for her preoperative visit. She had a spontaneous vaginal delivery of a baby boy, Reji, on 06/11/2017. We were unable to perform a sterilization at that time. In any event, patient is doing well and verbalizes her desire to proceed with surgery. I discussed with patient the risks, benefits , alternatives, indications, expectations of surgery. Included in the discussion were the risk of hemorrhage, infection and damage to surrounding organs, which may include, but not limited to an inadvertent laceration, cauterization or ligation of the adjacent intestines, bladder and ureters. In addition, patient understands there is intrinsic failure rate. It is less than 1%. Patient understands that should she feel after surgery, she is to call me immediately. Patient also understands that sterilization is not her only form of contraception and she may proceed to control pills, IUD and the patch, should she so desire. After patient's questions were answered to her satisfaction, she verbalized her desire to proceed with surgery. Consent forms have been signed. PAST MEDICAL HISTORY: 1. Tobacco use. 2. History of drug abuse. 3. depression. 4. Dental caries. PAST SURGICAL HISTORY: None. ALLERGIES: NO KNOWN DRUG ALLERGIES. MEDICATIONS: None. SOCIAL HISTORY: She does smoke tobacco and drinks alcohol on a social basis. She denies any current drug abuse. I believe patient has been clean. Patient has 4 children, the oldest son, Paresh, delivered vaginally on 10/29/2009 and she had depression. The daughter on 10/18/2013, weighing 7 pounds 2 ounces. Another daughter on 10/27/2014 and finally baby boy, Reji, on 2017. Patient's significant other is Juan Francisco. Her pharmacy of choice is [facility] in [place], [place]. PAST OBSTETRICAL HISTORY: Four-term spontaneous vaginal deliveries without complications. Most recent delivery was on 06/11/2017. PAST GYNECOLOGIC HISTORY: She denies any abnormal Pap smears or sexually transmitted diseases. FAMILY HISTORY: She denies any female carcinoma. REVIEW OF SYSTEMS: Negative unless otherwise stated. She denies any nausea, vomiting, fevers, chills, diarrhea, or constipation. PHYSICAL EXAMINATION: VITAL SIGNS: Weight is 186 pounds, height is 62 inches, BMI is 34.1. Blood pressure 106/62. GENERAL: Patient is a well-developed, well-nourished female in no apparent distress. She is alert and oriented x3. HEENT: Within normal limits. Patient does wear glasses. CARDIOVASCULAR: Regular, no murmurs or rubs. LUNGS: Lungs are clear to auscultation bilaterally. ABDOMEN: Soft, nontender. No masses, rebound, rigidity or guarding. ASSESSMENT: 1. A 32-year-old G4, P4-0-0-4. 2. Desires permanent sterilization. 3. Status post spontaneous vaginal delivery on 06/11/2017. 4. Smoker. 5. History of drug abuse. PLAN: 1. I discussed with patient the risks, benefits, alternatives, indications, expectations of laparoscopic bilateral salpingectomy for permanent sterilization. Patient has been appropriately consented and agrees to proceeding with surgery. 2. Patient is to get a urine hCG today in preparation for surgery on 2017. 3. Patient has been instructed to take ibuprofen as well as Tylenol for pain after surgery. She has a prescription for Vicodin for breakthrough pain. 4. Patient is to see me in 2 weeks at [facility] for routine postoperative visit. TD: 07/26/2017 11:44 MTDD
[2017-07-27] MEDS ORDERED: LACTATED RINGERS 1,000 ML IV ONE ×2 (06:35→09:04)
[2017-07-27] MEDS ORDERED: CELECOXIB 100 MG CAPSULE PO ONE (06:38)
[2017-07-27] MEDS ORDERED: LIDOCAINE 1%-EPI 1:100000 30 ML MDV ONE (07:28)
[2017-07-27] MEDS ORDERED: LIDOCAINE 1%-EPI 1:100000 20 ML MDV SUBQ ONE ×2 (07:53)
[2017-07-27] MEDS ORDERED: MIDAZOLAM 2 MG/2 ML VIAL IVP ONE (07:55)
[2017-07-27] MEDS ORDERED: LIDOCAINE-MPF 2% 5 ML VIAL IM ONE (07:55)
[2017-07-27] MEDS ORDERED: SUCCINYLCHOLINE 200 MG/10 ML VIAL IVP ONE (07:55)
[2017-07-27] MEDS ORDERED: ONDANSETRON 4 MG/2 ML VIAL IVP ONE (07:55)
[2017-07-27] MEDS ORDERED: ePHEDrine 50 MG/ML AMP IVP ONE (07:55)
[2017-07-27] MEDS ORDERED: ROCURONIUM 50 MG/5 ML VIAL IVP ONE (07:55)
[2017-07-27] MEDS ORDERED: GLYCOPYRROLATE 1 MG/5 ML VIAL IVP ONE (07:55)
[2017-07-27] MEDS ORDERED: NEOSTIGMINE 1 MG/1 ML 10 ML MDV IVP ONE (07:55)
[2017-07-27] MEDS ORDERED: PROPOFOL 200 MG/20 ML VIAL IVP ONE (07:55)
[2017-07-27] MEDS ORDERED: KETOROLAC 30 MG/ML VIAL IVP ONE (07:55)
[2017-07-27] MEDS ORDERED: fentaNYL 100 MCG/2 ML VIAL IVP ONE (07:55)
[2017-07-27] MEDS ORDERED: DEXAMETHASONE 4 MG/ML VIAL IVP ONE (07:55)
--- NOTE | 2017-07-27 08:25 | OPERATIVE REPORT ---
Operative Report - Other Other Information/Narrative: Date of Operation: 07/27/2017 Surgeon: Judy Bryant DO FACOG Banking Analyst: None Power Brake Rebuilder: Juan Francisco Alicea CRNA Anesthesia: GET Pre-Op Dx: 1. 32 yo 2. Desired permanent sterilization Post-Op Dx: 1. 32 yo 2. Desired permanent sterilization Procedure: 1. Laparoscopic bilateral salpingectomy Findings: 1. Normal uterus, fallopian tubes and ovaries 2. Normal appendix and liver edge Specimens: Bilateral fallopian tubes Drains: None EBL: <10 mL Complications: None OP Note Dictation #[id number]
[2017-07-27] MEDS ORDERED: KETOROLAC 30 MG/ML VIAL ONE (08:43)
--- NOTE | 2017-07-27 09:24 | OPERATIVE REPORT ---
DATE OF OPERATION: 07/27/2017 SURGEON: Judy Bryant DO, FACOG FURNACE PACKER: None CRANE MANAGER: Juan Francisco Alicea CRNA. ANESTHESIA: General endotracheal tube. PREOPERATIVE DIAGNOSES 1. A 32-year-old G4, P4-0-0-4. 2. Desired permanent sterilization. POSTOPERATIVE DIAGNOSES 1. A 32-year-old G4, P4-0-0-4 2. Desired permanent sterilization. PROCEDURE PERFORMED: Laparoscopic bilateral salpingectomy. FINDINGS: 1. Normal uterus, ovaries and fallopian tubes. 2. Normal appendix and liver edge. SPECIMENS: Bilateral fallopian tubes in one specimen container. DRAINS: None. ESTIMATED BLOOD LOSS: Less than 10 mL COMPLICATIONS: None. BRIEF HISTORY: This is a patient of [facility], who has verbalized her desire for permanent sterilization since the of her daughter earlier this year. I discussed with the patient the risks, benefits, alternatives, and indications, expectations of a laparoscopic bilateral salpingectomy. The patient understands that there are intrinsic risks of hemorrhage, infection and damage to surrounding organs. With respect to damage to the organs, this may include, but not limited to an inadvertent laceration, cauterization or ligation of the adjacent ureters, intestines, and bladder. With respect to sterilization, the patient understands that the most common complication is regret. This surgery is meant to be permanent and irreversible. There is an intrinsic failure rate of less than 1%. Should the patient think that she is after surgery, she is to contact me immediately as she is at increased risk for ectopic . The patient understands that there are other options available to her and a sterilization is not her only option. She may choose to have control pills, Ortho-Evra , Depo-Provera, Nexplanon, the Mirena IUD and the ParaGard intrauterine device. There is also the option of vasectomy for her spouse should she desire that. After all the patient's questions were answered to her satisfaction, she verbalized her desire to proceed with sterilization via laparoscopic bilateral salpingectomy. Consent forms have been signed. OPERATION IN DETAIL: The patient was identified and consented, taken to the operating room where IV access was in place. She was then given sequential compression devices, which were placed on the lower extremities and turned on. The patient was then given satisfactory general endotracheal tube anesthesia as per Juan Francisco Alicea. It was noted that, after the first intubation attempt, CO2 gas was not returning. Juan Francisco did have to attempt for a second time intubation, which did reveal a CO2. The patient was then prepped and draped in normal sterile fashion in the supine position. A timeout was performed, which correctly identified the patient, site of the procedure and the procedure itself. Three laparoscopic port sites were identified, the first in the subumbilical fold and 2 other ones in the right and left lower quadrant. All 3 port sites were 5 mm in length. The lower quadrant sites were identified by finding the respective anterior superior iliac spine and then moving 2 fingerbreadths superior and medial to those locations. All port sites were injected with 1% lidocaine with epinephrine, a total of 15 mL were used. Stab incisions were made in these port sites. With the Visiport trocar, entrance into the abdomen was made. No trauma to intra-abdominal organs were noted. CO2 gas was then used to insufflate the abdomen thus obtaining satisfactory pneumoperitoneum. Other 2 port sites were then placed under direct visualization of the camera. Again, no trauma to intra-abdominal organs were noted. Inspection of the pelvis revealed a normal uterus, fallopian tubes, and ovaries. The appendix was also visualized, which was found to be normal. Finally, the liver edge was seen and normal. There were no signs of Elpidio-Dennis- Mook. The right fallopian tube was first identified and followed to its fimbriated end with the LigaSure. The fallopian tube was then clamped, cauterized, and incised just inferior to the fallopian tube. Hemostasis was noted. In a similar fashion, the left fallopian tube was identified, cauterized, and excised. The fallopian tubes were removed through the 5 mm laparoscopic port sites. Reinspection of the cauterized edges revealed no active bleeding. At this point in time, the procedure had been completed. The CO2 gas was then allowed to egress into the atmosphere, thus relieving the pneumoperitoneum. All instruments were removed on the abdomen. The 3 laparoscopic port sites were then closed with 4-0 Monocryl in a subcuticular fashion, and Dermabond was placed on top of these incisions. The patient tolerated the procedure well and was taken back to recovery room in stable condition. All sponge, lap, and needle counts were correct per nurse report. The patient will be discharged home later today after postoperative criteria is met. I have already spoken to the patient's mother, Jane, and explained to her that surgery went well and there were no complications. I expect to see the patient at [facility] in 2 weeks for routine postoperative visit. TD: 07/27/2017 08:47 ZANDRA
[2017-07-27 09:43] VITALS: BP 128/77
== END 2017-07-27 05:56 | disposition home or self-care (01) ==
LOC: SDS 05:55
PROVIDERS: ATTEND Obstetrics & Gynecology
PROC: 0UT74ZZ Resection of Bilateral Fallopian Tubes, Percutaneous Endoscopic Approach (ICD-10-PCS; principal; 2017-07-27 07:30)
DX: Z30.2 Encounter for sterilization (principal); F17.200 Nicotine dependence, unspecified, uncomplicated
CPT/HCPCS: 58661; A9270; J0330; J7120; 88302

== ENCOUNTER 2019-02-24 05:20 | Emergency (ER) | payer MEDICAID ==
--- NOTE | 2019-02-24 05:32 | ED Physician Documentation ---
PD HPI URI - Stated complaint Stated Complaint: FEVER/SORE THROAT - Chief complaint Chief Complaint: Heent - History obtained from History obtained from: Patient - History of Present Illness Timing - onset: How many days ago (2) Timing duration: Days (2) Timing details: Abrupt onset, Still present Associated symptoms: Fever, Chills, Nasal congestion, Sore throat, Dry cough. No: Hemoptysis, NVD Contributing factors: No: Sick contact, Travel, Unimmunized Improves by: No: Medication (OTC Nyquil type meds) Worsened by: Activity Similar symptoms before: Has not had sx before Review of Systems Constitutional: reports: Fever, Chills, Myalgias, Fatigue Nose: reports: Rhinorrhea / runny nose, Congestion Throat: reports: Sore throat Respiratory: reports: Cough GI: reports: Nausea. denies: Vomiting, Diarrhea Neurologic: reports: Generalized weakness, Headache. denies: Near syncope, Confused, Altered mental status PD PAST MEDICAL HISTORY - Past Medical History Cardiovascular: None Respiratory: None Endocrine/Autoimmune: None GI: None ANODE MACHINE OPERATOR: None : None Psych: Depression Musculoskeletal: None Derm: None - Past Surgical History Past Surgical History: No - Present Medications Home Medications: Ambulatory Orders Medication Instructions Recorded Confirmed Benzonatate [Tessalon Perle] 100 mg PO TID PRN #20 capsule 02/24/19 Hydrocodone/Acetaminophen [[place] 1 each PO Q6H PRN #15 tablet 02/24/19 5-325 Tablet] dexAMETHasone [Decadron] 4 mg PO DAILY #5 tablet 02/24/19 - Allergies Allergies/Adverse Reactions: Allergies Allergy/AdvReac Type Severity Reaction Status Date / Time No Known Drug Allergies Allergy Verified 08/15/13 19:39 - Social History Does the pt smoke?: Yes Smoking Status: Current every day smoker Does the pt drink ETOH?: No Does the pt have substance abuse?: No - Immunizations Immunizations are current?: Yes - POLST Patient has POLST: No PD ED PE NORMAL - Vitals Vital signs reviewed: Yes - General General: Alert and oriented X 3, No acute distress, Well developed/nourished - HEENT HEENT: Ears normal, Moist mucous membranes, Pharynx benign - Neck Neck: Supple, no meningeal sign, No adenopathy - Cardiac Cardiac: RRR (mild tachycardia), No murmur - Respiratory Respiratory: Clear bilaterally - Abdomen Abdomen: Soft, Non tender - Derm Derm: Normal color, Warm and dry - Extremities Extremities: Normal ROM s pain, No edema - Neuro Neuro: Alert and oriented X 3, No motor deficit, Normal speech Results - Vitals Vitals: Oxygen O2 Source Room air - Labs Labs: Laboratory Tests 02/24/19 02/24/19 05:30 05:30 Influenza A (Rapid) Negative Influenza B (Rapid) Negative Group A Strep Rapid Negative PD MEDICAL DECISION MAKING - ED course Complexity details: considered differential (flu-like symptoms with negative flu test. ), d/w patient Departure - Departure Disposition: Home, Self Care Clinical Impression: Upper respiratory infection Qualifiers: URI type: unspecified URI Qualified Code(s): J06.9 - Acute upper respiratory infection, unspecified Condition: Stable Record reviewed to determine appropriate education?: Yes Instructions: ED Upper Resp Infec No Abx Tx Prescriptions: Benzonatate [Tessalon Perle] 100 mg PO TID PRN #20 capsule PRN Reason: Cough dexAMETHasone [Decadron] 4 mg PO DAILY #5 tablet Hydrocodone/Acetaminophen [Wells 5-325 Tablet] 1 each PO Q6H PRN #15 tablet PRN Reason: Pain Comments: Your strep test is negative. The culture from that will result in a day or 2 and see if there are other types of bacterial infections instead. At this point it would seem viral. Your flu test is negative as well. Will presume a other type virus and treated mainly symptoms with medication for the sore throat cough and pain. Tessalon as needed for cough. Decadron daily for 5 more days for inflammation. Add hydrocodone if needed for pain and cough. Stay well-hydrated. Tylenol or ibuprofen for fever or chills. I would anticipate being ill about 5 to 7 days. Discharge Date/Time: 02/24/19 06:04
[2019-02-24 05:43] LABS: RAPID STREP SCREEN Negative (Negative)
[2019-02-24] MEDS ORDERED: diphenhydrAMINE ELIXIR 25 MG/10 ML UDC PO STA (05:50)
[2019-02-24] MEDS ORDERED: CHERRY SYRUP 10 ML UDC PO ONE (05:50)
[2019-02-24] MEDS ORDERED: HYDROcod/ACETAM 5/325 MG TABLET PO STA (05:50)
[2019-02-24] MEDS ORDERED: BENZONATATE 100 MG CAPSULE PO STA (05:50)
[2019-02-24] MEDS ORDERED: DEXAMETHASONE 10 MG/ML VIAL PO STA (05:50)
[2019-02-24 06:03] VITALS: BP 118/72
== END 2019-02-24 06:04 | disposition home or self-care (01) ==
LOC: ED 05:20
DX: J06.9 Acute upper respiratory infection, unspecified (principal); F17.200 Nicotine dependence, unspecified, uncomplicated
CPT/HCPCS: 87070; 87275; 87276; 87430; 99283; 99284; A9270

== ENCOUNTER 2019-03-15 19:09 | Emergency (ER) | payer MEDICAID ==
[2019-03-15] MEDS ORDERED: DOXEPIN 10 MG CAPSULE PO STA (21:07)
--- NOTE | 2019-03-15 21:13 | ED Physician Documentation ---
PD HPI SKIN - Stated complaint Stated Complaint: RASH - Chief complaint Chief Complaint: Wound - History obtained from History obtained from: Patient (For the last month she has had an on and off very itchy rash, mostly on the trunk and the arms. She has known bedbugs and has hired an tire builder heavy service.) Review of Systems Constitutional: denies: Fever, Chills Cardiac: denies: Chest pain / pressure, Palpitations Respiratory: denies: Dyspnea, Cough PD PAST MEDICAL HISTORY - Past Medical History Past Medical History: Yes Cardiovascular: None Respiratory: None Endocrine/Autoimmune: None GI: None OB/GYN PHYSICIAN: None : None Psych: Depression Musculoskeletal: None Derm: Other Other Past Medical History: Scabies - Past Surgical History Past Surgical History: No - Present Medications Home Medications: Ambulatory Orders Medication Instructions Recorded Confirmed Benzonatate [Tessalon Perle] 100 mg PO TID PRN #20 capsule 02/24/19 Hydrocodone/Acetaminophen [[place] 1 each PO Q6H PRN #15 tablet 02/24/19 5-325 Tablet] dexAMETHasone [Decadron] 4 mg PO DAILY #5 tablet 02/24/19 Doxepin [SINEquan] 10 mg PO TID PRN #30 capsule 03/15/19 Triamcinolone 0.1% Oint [Kenalog 1 gm TOP BID #3 tube 03/15/19 0.1% Oint] - Allergies Allergies/Adverse Reactions: Allergies Allergy/AdvReac Type Severity Reaction Status Date / Time No Known Drug Allergies Allergy Verified 03/15/19 21:04 - Social History Does the pt smoke?: Yes Smoking Status: Current every day smoker Does the pt drink ETOH?: No Does the pt have substance abuse?: No - Immunizations Immunizations are current?: Yes - POLST Patient has POLST: No PD ED PE NORMAL - Vitals Vital signs reviewed: Yes - General General: Alert and oriented X 3, No acute distress - HEENT HEENT: PERRL, EOMI - Neck Neck: Supple, no meningeal sign, No bony TTP - Derm Derm: Other (All over, she shows me her arms and legs and back and upper chest wall and stomach, she has excoriated lesions, red bumps) - Neuro Neuro: Alert and oriented X 3, Normal speech Results - Vitals Vitals: Vital Signs - 24 hr 03/15/19 19:14 Temperature 36.5 C Heart Rate 87 Respiratory 14 Rate Blood Pressure 126/95 H O2 Saturation 99 Oxygen O2 Source Room air PD MEDICAL DECISION MAKING - ED course ED course: This is a 33-year-old woman who has a known bedbug infestation and is here for some symptomatic relief. She already has hired an tire builder heavy service. Departure - Departure Disposition: 01 Home, Self Care Clinical Impression: Bedbug bite Qualifiers: Encounter type: initial encounter Qualified Code(s): W57.XXXA - Bitten or stung by nonvenomous insect and other nonvenomous arthropods, initial encounter Condition: Good Record reviewed to determine appropriate education?: Yes Instructions: ED Bites Bed Bug Prescriptions: Doxepin [SINEquan] 10 mg PO TID PRN #30 capsule PRN Reason: Itching Triamcinolone 0.1% Oint [Kenalog 0.1% Oint] 1 gm TOP BID #3 tube Comments: Continue your excellent efforts at trying to rid your home dwelling of bedbugs. Follow-up with your doctor for refills.
[2019-03-15 21:18] VITALS: BP 122/68
== END 2019-03-15 21:18 | disposition home or self-care (01) ==
LOC: ED 19:09
DX: S40.862A Insect bite (nonvenomous) of left upper arm, initial encounter (principal); S40.861A Insect bite (nonvenomous) of right upper arm, initial encounter; S80.862A Insect bite (nonvenomous), left lower leg, initial encounter; S80.861A Insect bite (nonvenomous), right lower leg, initial encounter; S30.860A Insect bite (nonvenomous) of lower back and pelvis, initial encounter; S20.469A Insect bite (nonvenomous) of unspecified back wall of thorax, initial encounter; S20.369A Insect bite (nonvenomous) of unspecified front wall of thorax, initial encounter; S30.861A Insect bite (nonvenomous) of abdominal wall, initial encounter; W57.XXXA Bitten or stung by nonvenomous insect and other nonvenomous arthropods, initial encounter; F17.200 Nicotine dependence, unspecified, uncomplicated
CPT/HCPCS: 99282; 99284; A9270

== ENCOUNTER 2020-02-05 15:34 | Emergency (ER) | payer MEDICAID ==
[2020-02-05 15:50] VITALS: BP 134/85
--- NOTE | 2020-02-05 16:06 | ED Physician Documentation ---
History of Present Illness - Stated complaint Stated Complaint: LT SIDE MOUTH PX,VOMITING - Chief complaint Chief Complaint: Heent - History obtained from History obtained from: Patient - History of Present Illness Timing: Prior to arrival - Additonal information Additional information: 34-year-old female presents to the emergency department for evaluation of wo rsening left upper mouth pain. She reports that she has decayed molar in the back of her mouth. She has been seen by [facility] recently and is scheduled to be seen again in about 1 month for work on this tooth. She woke up this a.m. with acute pain in the mouth but no swelling. No trismus. No dysphonia. No recent antibiotics. She is taken ibuprofen without relief of pain. Review of Systems Constitutional: denies: Fever, Chills Eyes: reports: Reviewed and negative Ears: reports: Reviewed and negative Nose: reports: Reviewed and negative Throat: reports: Dental pain / toothache (tooth #15) Cardiac: reports: Reviewed and negative Respiratory: reports: Reviewed and negative GI: reports: Reviewed and negative : reports: Reviewed and negative PD PAST MEDICAL HISTORY - Past Medical History Past Medical History: Yes Cardiovascular: None Respiratory: None Endocrine/Autoimmune: None GI: None SCIENTIFIC TECHNICAL WRITER: None : None Psych: Depression Musculoskeletal: None Derm: Other - Past Surgical History Past Surgical History: No - Present Medications Home Medications: Ambulatory Orders Medication Instructions Recorded Confirmed Amox/Clav 875/125 [Augmentin] 1 each PO Q12H 10 Days #20 tablet 02/05/20 Chlorhexidine Gluconate [Peridex] 15 ml MM BID #1 bottle 02/05/20 Ibuprofen [Motrin] 800 mg PO Q8H PRN 02/05/20 02/05/20 - Allergies Allergies/Adverse Reactions: Allergies Allergy/AdvReac Type Severity Reaction Status Date / Time No Known Drug Allergies Allergy Verified 02/05/20 15:50 - Social History Does the pt smoke?: Yes Smoking Status: Current every day smoker Does the pt drink ETOH?: No Does the pt have substance abuse?: No - Immunizations Immunizations are current?: Yes - POLST Patient has POLST: No PD ED PE EXPANDED - General General: Alert, In Pain - HEENT HEENT: Dental decay, Dental TTP (Tooth #15 with decay on posterior side of molar. no drainage. No gumline swelling or fluctuance. Tenderness to palpation of the tooth. No trismus. No dysphonia.). No: Dentition normal Results - Vitals Vitals: Vital Signs - 24 hr 02/05/20 15:44 Temperature 36.1 C L Heart Rate 79 Respiratory 18 Rate Blood Pressure 134/85 H O2 Saturation 99 Oxygen O2 Source Room air PD MEDICAL DECISION MAKING - ED course Complexity details: reviewed results, re-evaluated patient, considered differential, d/w patient ED course: 34-year-old female presents the emergency department with acute left upper tooth pain. On exam this is an obviously decayed molar. She is likely developing an early infection. Augmentin will be initiated. She is to continue follow-up with Octavio Robbins. She reassuringly has no red flags, trismus, fever or facial swelling. Will recommend chlorhexidine mouthwash. If unable to afford I do recommend rinsing the mouth 3 times a day with warm salt water. Emergent return precautions discussed Departure - Departure Disposition: 01 Home, Self Care Clinical Impression: Dental decay, Pain in a tooth or teeth, Dental abscess Condition: Stable Record reviewed to determine appropriate education?: Yes Instructions: ED [facility] Prescriptions: Amox/Clav 875/125 [Augmentin] 1 each PO Q12H 10 Days #20 tablet Chlorhexidine Gluconate [Peridex] 15 ml MM BID #1 bottle Comments: Nadine you do have a tooth in the back of your mouth that is decayed. This is the cause of your pain. You may be developing an early infection in this tooth. Please fill the prescription for the Augmentin and begin taking as directed. It is okay to continue to take the ibuprofen with food to avoid stomach upset. I would also like you to fill the prescription for the chlorhexidine mouthwash. If you cannot afford this prescription please rinse your mouth with warm salt water 3 times a day. I do anticipate that as the infection gets better the pain should also improve. Is very important that you continue to follow-up with your dentist. If at any point you have facial swelling, cannot open your mouth, cannot speak or swallow normally please return immediately to the ER
[2020-02-05] MEDS ORDERED: AMOX/CLAV 875 MG/125 MG TABLET PO STA (16:08)
== END 2020-02-05 16:23 | disposition home or self-care (01) ==
LOC: ED 15:34
DX: K04.7 Periapical abscess without sinus (principal); K02.9 Dental caries, unspecified; K08.89 Other specified disorders of teeth and supporting structures; F17.200 Nicotine dependence, unspecified, uncomplicated
CPT/HCPCS: 99282; 99283; A9270

== ENCOUNTER 2021-11-04 09:13 | Outpatient (CLI) | payer MEDICAID ==
[2021-11-04 12:47] LABS: BASOPHILS % (AUTO) 0.4 %; EOSINOPHILS # (AUTO) 0.1 10^3/uL (0.0-0.7); EOSINOPHILS % (AUTO) 0.7 %; HCT - HEMATOCRIT 41.8 % (37.0-47.0); HGB - HEMOGLOBIN 14.1 g/dL (12.0-16.0); LYMPHOCYTES # (AUTO) 2.3 10^3/uL (1.5-3.5); LYMPHOCYTES % (AUTO) 28.8 %; MEAN CORPUSCULAR HEMOGLOBIN 31.1 pg (27.0-31.0); MEAN CORPUSCULAR HGB CONC 33.7 g/dL (32.0-36.0); MEAN CORPUSCULAR VOLUME 92.1 fL (81.0-99.0); MEAN PLATELET VOLUME 11.3 fL (7.9-10.8); MONOCYTES # (AUTO) 0.5 10^3/uL (0.0-1.0); MONOCYTES % (AUTO) 6.1 %; NEUTROPHILS # (AUTO) 5.2 10^3/uL (1.5-6.6); NEUTROPHILS % (AUTO) 63.6 %; PLT - PLATELET COUNT 223 10^3/uL (130-450); RED BLOOD COUNT 4.54 10^6/uL (4.20-5.40); RED CELL DISTRIBUTION WIDTH 13.2 % (12.0-15.0); WHITE BLOOD COUNT 8.1 x10^3/uL (4.8-10.8)
[2021-11-04 13:15] LABS: ALBUMIN 4.1 g/dL (3.2-5.5); ALBUMIN/GLOBULIN RATIO 1.1 (1.0-2.2); ALKALINE PHOSPHATASE 61 IU/L (42-121); ALT ALANINE AMINOTRANSFERASE 20 IU/L (10-60); AST ASPARTATE AMINOTRANSFERASE 20 IU/L (10-42); BILIRUBIN,TOTAL 0.5 mg/dL (0.2-1.0); BUN - BLOOD UREA NITROGEN 13 mg/dL (6-20); CARBON DIOXIDE - CO2 25 mmol/L (21-32); CHLORIDE 104 mmol/L (101-111); CHOLESTEROL 240 mg/dL; CREATININE 0.7 mg/dL (0.4-1.0); GFR - MDRD 95 (>89); GLUCOSE 91 mg/dL (70-100); HDL CHOLESTEROL 40 mg/dL; LDL CHOLESTEROL,CALCULATED 171 mg/dL; LDL/HDL RATIO 4.3 (<4.4); POTASSIUM 4.3 mmol/L (3.5-5.0); SODIUM 137 mmol/L (135-145); TOTAL PROTEIN 7.7 g/dL (6.7-8.2); TRIGLYCERIDES 143 mg/dL; VLDL CHOLESTEROL 29 mg/dL
[2021-11-04 13:22] LABS: THYROID STIMULATING HORMONE 2.6 uIU/mL (0.34-5.60)
[2021-11-04 13:51] LABS: FOLLICLE STIMULATING HORMONE 1.46 mIU/mL
== END 2021-11-04 09:14 | disposition home or self-care (01) ==
LOC: LAB.N 09:13
PROVIDERS: ATTEND Physician Assistant
DX: Z51.81 Encounter for therapeutic drug level monitoring (principal); N95.1 Menopausal and female climacteric states; R23.2 Flushing
CPT/HCPCS: 36415; 80050; 80061; 83001; 83721

== ENCOUNTER 2021-11-27 15:49 | Outpatient (CLI) | payer MEDICAID ==
[2021-11-27 23:00] LABS: BACTERIAL VAGINOSIS DNA NEGATIVE (NEGATIVE); CANDIDA GLABRATA DNA NEGATIVE (NEGATIVE); CANDIDA GROUP DNA NEGATIVE (NEGATIVE); CANDIDA KRUSEI DNA NEGATIVE (NEGATIVE); TRICHOMONAS VAGINALIS DNA NEGATIVE (NEGATIVE)
[2021-11-28 00:02] LABS: CHLAMYDIA TRACHOMATIS DNA NEGATIVE (NEGATIVE); NEISSERIA GONORRHOEAE DNA NEGATIVE (NEGATIVE)
== END 2021-11-27 15:50 | disposition home or self-care (01) ==
LOC: LAB.WC 15:49
PROVIDERS: ATTEND Obstetrics & Gynecology
DX: N89.8 Other specified noninflammatory disorders of vagina (principal); R10.2 Pelvic and perineal pain
CPT/HCPCS: 81514; 87491; 87591; 87661

== ENCOUNTER 2022-05-12 08:00 | Outpatient (CLI) | payer MEDICAID | END 2022-05-12 23:59 | disposition home or self-care (01) | LOC: LAB.WCP 08:00 | PROVIDERS: ATTEND Physician Assistant | DX: R10.9 Unspecified abdominal pain (principal) | CPT/HCPCS: 83993 ==

== ENCOUNTER 2022-05-12 09:06 | Outpatient (CLI) | payer MEDICAID ==
--- NOTE | 2022-05-12 16:43 | XRAY Report ---
PROCEDURE: Abdomen Acute INDICATIONS: NAUSEA AND VOMITING TECHNIQUE: One view chest and two views of the abdomen were acquired. COMPARISON: None. FINDINGS: Surgical changes and devices: None. Chest: Lungs are clear. Heart size is normal. No pleural effusions. No pneumoperitoneum. Abdomen: There is a paucity of bowel gas in the abdomen and pelvis. No distended air-filled loops of bowel are seen. No pneumoperitoneum. No suspicious calcifications. Visualized solid organ contours a ppear normal. Bones: No suspicious bony lesions. IMPRESSION: Nonspecific nonobstructive bowel gas pattern. No pneumoperitoneum. No acute cardiopulmon ravi abnormality. Reviewed by: Hardeep Richter MD on 05/12/2022 4:42 PM PDT Approved by: Hardeep Richter MD on 05/12/2022 4:42 PM PDT Station ID: [id number]
== END 2022-05-12 09:07 | disposition home or self-care (01) ==
LOC: DI 09:06
PROVIDERS: ATTEND Physician Assistant
DX: R11.2 Nausea with vomiting, unspecified (principal); R10.9 Unspecified abdominal pain
CPT/HCPCS: 83993

== ENCOUNTER 2023-07-26 09:03 | Emergency (ER) | payer MEDICAID ==
--- NOTE | 2023-07-26 09:12 | ED Physician Documentation ---
PD HPI MHE - Stated complaint Stated Complaint: MHE,ANXIETY - History obtained from History obtained from: Patient - History of Present Illness Primary symptom: Suicidal ideation, Homicidal ideation, Depression, Anxiety Timing - onset: How many months ago (patient states group home anxiety and depression with anxiety both about her children getting hurt in various ways in life and also that she might hurt them, intentionally or accidentally. These have been pervasive in life (her kids are 6-16 years range). Also ideation of self harm. No prior attempt), Other (these feeling more intense the past few weeks/months, and more so the past week. Has had poor sleep. Is on antidepressant but states not effective anymore. Poor sleep as well adding to anxiety.) Contributing factors: Other (also gets very anxious and leads to nausea and vomtiing, frequent the past 1-2 weeks.). 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 Not getting counseling.) Recently seen: Not recently seen PD PAST MEDICAL HISTORY - Past Medical History Cardiovascular: None Respiratory: None Endocrine/Autoimmune: None GI: None ORACLE DATABASE ARCHITECT: None : None Psych: Depression Musculoskeletal: None Derm: Other - Past Surgical History Past Surgical History: No - Present Medications Home Medications: Ambulatory Orders Medication Instructions Recorded Confirmed Amox/Clav 875/125 [Augmentin] 1 each PO Q12H 10 Days #20 tablet 02/05/20 Chlorhexidine Gluconate [Peridex] 15 ml MM BID #1 bottle 02/05/20 Ibuprofen [Motrin] 800 mg PO Q8H PRN 02/05/20 02/05/20 Meclizine HCl [Motion Sickness] 25 mg PO Q6H PRN #30 tablet 12/06/21 Ondansetron Odt [Zofran] 4 mg TL Q6H PRN #10 tablet 12/06/21 Citalopram Hydrobromide 40 mg PO DAILY #30 tablet 07/26/23 [Citalopram HBr] Famotidine [Pepcid] 20 mg PO DAILY #20 tablet 07/26/23 Ondansetron Odt [Zofran] 4 mg TL Q6H PRN #10 tablet 07/26/23 hydrOXYzine HCL [Hydroxyzine HCl] 25 mg PO Q8H PRN #20 tablet 07/26/23 traZODone [Desyrel] 25 - 50 mg PO HS #20 tablet 07/26/23 - Allergies Allergies/Adverse Reactions: Allergies Allergy/AdvReac Type Severity Reaction Status Date / Time No Known Drug Allergies Allergy Verified 07/26/23 10:33 - Social History Does the pt smoke?: Yes Smoking Status: Current every day smoker Does the pt drink ETOH?: No Does the pt have substance abuse?: No - Immunizations Immunizations are current?: Yes - POLST Patient has POLST: No PD ED PE NORMAL - Vitals Vital signs reviewed: Yes - General General: Alert and oriented X 3, Well developed/nourished, Other (tearful and anxious) - Neck Neck: Supple, no meningeal sign, No adenopathy - Cardiac Cardiac: RRR, No murmur - Respiratory Respiratory: No respiratory distress, Clear bilaterally - Abdomen Abdomen: Normal bowel sounds, Soft, Non tender, Non distended - Derm Derm: Normal color, Warm and dry - Extremities Extremities: Normal ROM s pain, No edema, No calf tenderness / cord - Neuro Neuro: Alert and oriented X 3, No motor deficit, Normal speech Results - Vitals Vitals: Vital Signs - 24 hr 07/26/23 07/26/23 09:13 13:38 Temperature 36.8 C Heart Rate 124 H 78 Respiratory 24 15 Rate Blood Pressure 146/115 H 131/74 H O2 Saturation 97 98 Oxygen O2 Source Room air - Labs Labs: Laboratory Tests 07/26/23 07/26/23 07/26/23 10:14 10:14 10:14 WBC 14.1 H RBC 4.81 Hgb 14.5 Hct 44.0 MCV 91.5 MCH 30.1 MCHC 33.0 RDW 12.9 Plt Count 242 MPV 10.3 Neut # (Auto) 12.3 H Lymph # (Auto) 1.3 L [place] # (Auto) 0.4 Eos # (Auto) 0.0 Baso # (Auto) 0.0 Absolute Nucleated RBC 0.00 Nucleated RBC % 0.0 Sodium 135 Potassium 3.4 L Chloride 104 Carbon Dioxide 23 Anion Gap 8.0 BUN 16 Creatinine 0.7 Estimated GFR (MDRD) 94 Glucose 117 H Calcium 9.6 Magnesium 2.0 Total Bilirubin 0.8 AST 13 ALT 12 Alkaline Phosphatase 64 Total Creatine Kinase 84 Total Protein 8.1 Albumin 4.7 Globulin 3.4 Albumin/Globulin Ratio 1.4 Lipase 35 TSH 1.86 Serum HCG, Qual NEGATIVE Salicylates < 1.5 Acetaminophen 0.3 Ethyl Alcohol < 10.0 PD Medical Decision Making - ED course Complexity details: reviewed results (potassium a bit low. Given IV fluids, famotidine, zofran. with improved symptoms. Taking PO water/crackers. ), re- evaluated patient (feeling less nauseated and less anxious. INapsine chosen for antinauseant and I think helped both nausea and anxiety. Feeling able to eat/drink. Rx to her pharmacy. ), considered differential (not tender in abdomen. Longer nausea and vomiting due to feeling anxious per patient. I feel likely gastritis has developed with that. ), d/w patient, d/w market research consultant (Social Work talked with pt and shared decision is not needing hospitalization, but to get started counseling soon, safety plan done, and I talked with patient about increased antidepressant dose and add anxiety meds. Also stomadch meds. ) Departure - Departure Disposition: 01 Home, Self Care Clinical Impression: Depression, Anxiety, Nausea and vomiting, Hypokalemia Condition: Stable Record reviewed to determine appropriate education?: Yes Follow-Up: Ena Dominique PA [Primary Care Provider] - Prescriptions: Citalopram Hydrobromide [Citalopram HBr] 40 mg PO DAILY #30 tablet traZODone [Desyrel] 25 - 50 mg PO HS #20 tablet hydrOXYzine HCL [Hydroxyzine HCl] 25 mg PO Q8H PRN #20 tablet PRN Reason: Anxiety Famotidine [Pepcid] 20 mg PO DAILY #20 tablet Ondansetron Odt [Zofran] 4 mg TL Q6H PRN #10 tablet PRN Reason: Nausea / Vomiting Comments: I wrote for a higher dose of your citalopram. Since it seems to be not working as well, and you are on a low-dose of it, we can increase it to 40 mg. You can start with just using your 20 mg tablets 2 of them daily and then go with the 40 mg prescription. I also wrote prescriptions for a medication to take at night to help with sleep and should help with anxiety through the day as well. It is called trazodone. Start with half tablet 25 mg and see how that does for you. You can increase to the 50 mg at night if needed. During the day if you are feeling anxious episodes, add hydroxyzine 25 mg every 6-8 hours if needed. Since she has been having a lot of nausea, and also wrote for a nausea medicine called Zofran/ondansetron. Use that if needed for nausea. With the lots of vomiting that you have been having, no doubt your stomach is irritated so I would suggest some acid reducing medicine daily for the next few weeks. I sent these prescriptions to the [facility] pharmacy. Follow-up with your primary care. Follow-up with counseling as referenced by the social work as well. Follow the safety plan you concluded with the geriatric social work professor regarding if you are feeling depressed or suicidal or need someone to talk to more urgently. Forms: PCP List Discharge Date/Time: 07/26/23 13:39
[2023-07-26 10:19] LABS: BASOPHILS % (AUTO) 0.2 %; HGB - HEMOGLOBIN 14.5 g/dL (12.0-16.0); LYMPHOCYTES # (AUTO) 1.3 10^3/uL (1.5-3.5); LYMPHOCYTES % (AUTO) 9.3 %; MEAN CORPUSCULAR HEMOGLOBIN 30.1 pg (27.0-31.0); MEAN CORPUSCULAR VOLUME 91.5 fL (81.0-99.0); MEAN PLATELET VOLUME 10.3 fL (7.9-10.8); MONOCYTES # (AUTO) 0.4 10^3/uL (0.0-1.0); MONOCYTES % (AUTO) 3.1 %; NEUTROPHILS # (AUTO) 12.3 10^3/uL (1.5-6.6); NEUTROPHILS % (AUTO) 87.1 %; PLT - PLATELET COUNT 242 10^3/uL (130-450); RED BLOOD COUNT 4.81 10^6/uL (4.20-5.40); RED CELL DISTRIBUTION WIDTH 12.9 % (12.0-15.0); WHITE BLOOD COUNT 14.1 x10^3/uL (4.8-10.8)
[2023-07-26 10:32] LABS: ACETAMINOPHEN 0.3 ug/mL; ALBUMIN 4.7 g/dL (3.2-5.5); ALBUMIN/GLOBULIN RATIO 1.4 (1.0-2.2); ALKALINE PHOSPHATASE 64 IU/L (42-121); ALT ALANINE AMINOTRANSFERASE 12 IU/L (10-60); AST ASPARTATE AMINOTRANSFERASE 13 IU/L (10-42); BILIRUBIN,TOTAL 0.8 mg/dL (0.2-1.0); BUN - BLOOD UREA NITROGEN 16 mg/dL (6-20); CALCIUM 9.6 mg/dL (8.5-10.3); CARBON DIOXIDE - CO2 23 mmol/L (21-32); CHLORIDE 104 mmol/L (101-111); CK- CREATINE KINASE 84 IU/L (30-223); CREATININE 0.7 mg/dL (0.6-1.3); ETOH - ETHANOL < 10.0 mg/dL; GFR - MDRD 94 (>89); GLUCOSE 117 mg/dL (74-104); LIPASE 35 U/L (11-82); POTASSIUM 3.4 mmol/L (3.5-4.5); SODIUM 135 mmol/L (135-145); TOTAL PROTEIN 8.1 g/dL (6.4-8.9)
[2023-07-26 10:35] LABS: SALICYLATE < 1.5 mg/dL
[2023-07-26] MEDS: SODIUM CHLORIDE 0.9% 1,000 ML IV STA (10:45)
[2023-07-26] MEDS: DROPERIDOL 5 MG/2 ML VIAL IVP STA (10:46)
[2023-07-26 10:47] LABS: THYROID STIMULATING HORMONE 1.86 uIU/mL (0.34-5.60)
[2023-07-26] MEDS: FAMOTIDINE 20 MG/2 ML VIAL IVP STA (10:49)
[2023-07-26] MEDS: KETOROLAC 15 MG/ML VIAL IVP STA (10:52)
[2023-07-26 11:26] LABS: HCG,QUALITATIVE BLOOD NEGATIVE
[2023-07-26 13:40] VITALS: BP 131/74; O2SAT 98
== END 2023-07-26 13:39 | disposition home or self-care (01) ==
LOC: ED 09:03
DX: F32.A Depression, unspecified (principal); F41.9 Anxiety disorder, unspecified; R11.2 Nausea with vomiting, unspecified; E87.6 Hypokalemia; F17.200 Nicotine dependence, unspecified, uncomplicated
CPT/HCPCS: 36415; 80053; 80143; 80179; 82077; 82550; 83690; 83735; 84443; 84703; 85025; 96361; 96374; 96375; 99284